=== PATIENT | male | born 1990 | race Caucasian/White ===

== ENCOUNTER 2020-10-02 13:24 | Emergency (ER) | payer MEDICAID ==
[~2020-10-02] VITALS: Ht 177.8 cm; Wt 81.0 kg
[~2020-10-02 13:24] MED LIST: NO HOME MEDS
[2020-10-02 13:39] VITALS: BP 122/50
[2020-10-02] MEDS ORDERED: LIDOcaine 1% W/epiNEPHrine 1:200,000 10ml vial IJ ONE (14:35)
[2020-10-02] MEDS ORDERED: CEPH250T PO (15:05)
[2020-10-02] MEDS ORDERED: DOXY100C76 PO (15:05)
== END 2020-10-02 16:21 | disposition home or self-care (01) ==
LOC: ER 13:25
DX: L02.01 Cutaneous abscess of face (principal); L03.211 Cellulitis of face; F12.90 Cannabis use, unspecified, uncomplicated; Z72.89 Other problems related to lifestyle; Z79.2 Long term (current) use of antibiotics
CPT/HCPCS: 10060; 99283

== ENCOUNTER 2020-11-06 02:20 | Emergency (ER) | payer MEDICAID ==
[~2020-11-06] VITALS: Ht 177.8 cm; Wt 86.3 kg
[2020-11-06 02:25] VITALS: BP 149/89
[2020-11-06] MEDS ORDERED: LIDOcaine 1% 30ml preserv. free vial IJ ONE (02:45)
== END 2020-11-06 03:59 | disposition home or self-care (01) ==
LOC: ER 02:20
DX: S61.217A Laceration without foreign body of left little finger without damage to nail, initial encounter (principal); F17.200 Nicotine dependence, unspecified, uncomplicated; X58.XXXA Exposure to other specified factors, initial encounter; Y93.89 Activity, other specified; Y92.89 Other specified places as the place of occurrence of the external cause; Y99.8 Other external cause status
CPT/HCPCS: 12001; 99282

== ENCOUNTER 2021-01-04 05:05 | Emergency (ER) | payer MEDICAID ==
[~2021-01-04] VITALS: Ht 177.8 cm; Wt 86.4 kg
[2021-01-04] MEDS ORDERED: piperacillin/tazo 3.375gm/50ml 50 ML IV ONE (07:15)
[2021-01-04] MEDS ORDERED: CLINDAMYCIN/D5W 900mg/50ml 50 ML IV ONE (07:15)
[2021-01-04] MEDS ORDERED: normal saline 1000ML IV soln IV ONE (07:15)
--- NOTE | 2021-01-04 08:39 | NUR ---
LAB AT BEDSIDE ATTEMPT X4, IV ATTEMPT X2 ABLE TO GET BLOOD BUT NO IV.
[2021-01-04 08:55] LABS: BASOPHILS # (AUTO) 0.1 X10'3 (0-0.2); BASOPHILS % (AUTO) 0.8 % (0-1); EOSINOPHILS # (AUTO) 0.2 X10'3 (0-0.9); EOSINOPHILS % (AUTO) 1.6 % (0-6); HEMATOCRIT 37.3 % (42.0-52.0); HEMOGLOBIN 12.8 g/dl (14.0-17.9); LYMPHOCYTES # (AUTO) 2.1 X10'3 (1.1-4.8); LYMPHOCYTES % (AUTO) 21.5 % (21-51); MEAN CORPUSCULAR HEMOGLOBIN 30.9 PG (27.0-31.0); MEAN CORPUSCULAR HGB CONC 34.4 g/dL (33.0-36.5); MEAN CORPUSCULAR VOLUME 89.8 FL (78-98); MEAN PLATELET VOLUME 8.5 FL (7.4-10.4); MONOCYTES # (AUTO) 0.7 X10'3 (0-0.9); MONOCYTES % (AUTO) 7.5 % (2-12); NEUTROPHILS # (AUTO) 6.8 X10'3 (1.8-7.7); NEUTROPHILS % (AUTO) 68.6 % (42-75); PLATELET COUNT 253 X10'3 (140-440); RED BLOOD COUNT 4.15 X10'6 (4.70-6.10); RED CELL DISTRIBUTION WIDTH 13.8 % (11.5-14.5)
[2021-01-04 09:10] LABS: ALANINE AMINOTRANSFERASE 35 U/L (12-78); ALBUMIN 3.6 G/DL (3.4-5.0); ALBUMIN/GLOBULIN RATIO 0.7 (1.1-1.5); ALKALINE PHOSPHATASE 112 IU/L (46-116); ANION GAP 10 (8-16); BILIRUBIN,TOTAL 0.4 MG/DL (0.1-1.0); BLOOD UREA NITROGEN 19 MG/DL (7-18); BUN/CREATININE RATIO 20.7 (5.4-32.0); CALCIUM 8.9 MG/DL (8.5-10.1); CHLORIDE 101 MMOL/L (99-107); CREATININE 0.92 MG/DL (0.60-1.10); GLUCOSE 74 MG/DL (70-104); MAGNESIUM 1.9 MG/DL (1.5-2.4); SODIUM 140 MMOL/L (135-145); TOTAL CARBON DIOXIDE 29.5 MMOL/L (24-32); TOTAL PROTEIN 8.6 G/DL (6.4-8.2); eGFR > 90 ML/MIN
[2021-01-04 09:13] LABS: ASPARTATE AMINO TRANSFERASE 45 U/L (10-37)
[2021-01-04] MEDS ORDERED: CLIN300C71 PO (09:42)
[2021-01-04] MEDS ORDERED: AMOX-117 PO (09:42)
[2021-01-04] MEDS ORDERED: ketorolac trometh. 30mg/ml inj. IV ONE (09:45)
[2021-01-04 10:26] VITALS: BP 113/79
== END 2021-01-04 10:27 | disposition home or self-care (01) ==
LOC: ER 05:06
DX: L03.115 Cellulitis of right lower limb (principal); M25.571 Pain in right ankle and joints of right foot; F15.90 Other stimulant use, unspecified, uncomplicated
CPT/HCPCS: 36415; 71045; 80053; 83605; 83735; 85025; 87040; 96365; 96368; 96375; 99284; J1885; J2543; J7030; J3490

== ENCOUNTER 2024-11-17 11:02 | Emergency (ER) | payer MEDICAID, OTHER ==
[~2024-11-17] VITALS: Ht 177.8 cm; Wt 105.1 kg
[2024-11-17 11:06] VITALS: BP 139/82; PULSE 95; RESP 16; TEMP 98; O2SAT 98
== END 2024-11-17 16:11 | disposition left against medical advice (07) ==
LOC: ER 11:02
DX: L03.116 Cellulitis of left lower limb (principal); Z53.21 Procedure and treatment not carried out due to patient leaving prior to being seen by health care provider